=== PATIENT | male | born 2000 | race Asian ===

== ENCOUNTER 2023-07-06 18:43 | Emergency (ER) | payer OTHER, SELFPAY ==
[2023-07-06 18:46] VITALS: BP 177/105; BMI 45.2
--- NOTE | 2023-07-06 21:05 | ED.GENMED ---
History of Present Illness
General
Chief Complaint: Skin Surface Trauma
Source: patient
Exam Limitations: none
Time Seen by Provider: 07/06/23 20:48
Travel History
Have you had any contact with someone who has COVID-19?: No
Do you have any symptoms of coronavirus? Fever > 100 degrees, chills, cough, shortness of breath, sore throat, loss of taste or smell, muscle aches, or headache?: No
History of Present Illness
History of Present Illness:
This is a 23 year old male that comes in with c/o left foot swelling and pain. States that he was getting ready to cook in his kitchen and he dropped the Kitchen aid on his left foot. states that he scrapped his leg on the left and then on the top
of the foot. States that he elevated his foot and applied ice but it kept getting more swollen. Unknown when last Tetanus. Denies any fever, chills, nausea, vomiting, diarrhea, headache, dizziness.
Past History
Past History
ED Past Medical History: None; Negative Asthma, HTN, Hypercholesterolemia or NIDDM
ED Past Surgical History: Orthopedic (ankle right)
Social History
Tobacco: Smoker (occasional)
Alcohol: Occasional
Drug: None
Personal: Single
Living: with family
Review of Systems
Review of Systems
All Other Systems: ROS reviewed and negative except as documented in HPI and ROS
Constitutional: Reports no symptoms; Denies fever or chills
EENT: Reports no symptoms
Respiratory: Reports no symptoms
Cardiac: Reports no symptoms
ABD/GI: Reports no symptoms
: Reports no symptoms
Musculoskeletal: Reports no symptoms
Skin: Reports other (abrasion on the left lateral calf. and skin tear on the left dorsal aspect of the left foot)
Neurological: Reports no symptoms
Psychiatric: Reports no symptoms
Phy Exam
General Physical Exam
General Presentation: well appearing and no apparent distress
General age: appears stated age
General Skin: warm and dry
General Habitus: obese
General Mental: alert
General Hydration: appears well hydrated
Eye Exam
Eye Exam: EOMI
Musculoskeletal Exam
Musculoskeletal Exam: full ROM and no edema
Skin Exam
Skin Exam: normal color, warm/dry, no petechia and other (Contusion left foot with swelling noted. Small abrasion on the left lateral aspect of the calf and small superficial skin tear on the dorsal aspect of the left foot. )
Psychiatric Exam
Psychiatric Exam: normal mood/affect
Course
Orders/Labs/Results
Orders:
Orders
07/06/23 18:45
Foot, Left 3 View [CR Foot - Left Min 3 Views] Urgent
Comment:
Reason For Exam: crush
07/06/23 21:05
Cast Shoe Left-Treatment ONCE
Acetaminophen [Tylenol] 1,000 mg PO NOW STA
Tetanus/Diphth/Acelpertussis [Adacel] 0.5 ml IM .ONCE ONE
Vital Signs
Initial and Last Documented VS:
Initial Vital Signs
Temp Pulse Resp BP Pulse Ox
98 F 71 16 177/105 97
07/06/23 18:46 07/06/23 18:46 07/06/23 18:46 07/06/23 18:46 07/06/23 18:46
Last Documented Vital Signs
Temp Pulse Resp BP Pulse Ox
98 F 71 16 177/105 97
07/06/23 18:46 07/06/23 18:46 07/06/23 18:46 07/06/23 18:46 07/06/23 18:46
MDM/Problems Addressed
Differential Diagnosis Includes:
Contusion, Abrasion, Foot fracture.
MDM/Problems Addressed:
This is a 23 year old male that comes in with c/o injury to the left foot after dropping his Kitchen aid on the foot.
Explained to patient that his x-ray is negative for any fractures. After cleaning his foot there is a superficial abrasion/skin tear. Will apply Triple antibiotic ointment and a bandage. Will give patient a Cast shoe to give support and help him
walk due to the swelling. Patient to rest, elevated and ice. Return with any concerns.
Chronic conditions affecting care:
NA
Acute Exacerbation and/or Progression of Chronic Illness:
NA
*Radiology
Radiology exam reviewed: radiology read reviewed (Foot = There is a significant soft tissue swelling along the dorsum of the foot, however no fracture or dislocation. )
*Pulse Oximetry
Patient hypoxic: no
*EKG
Interpreted by ED Provider?: NA
Rate: EKG- N/A
*Ice Guard Tester Interpretation
Rate: Ice Guard Tester- N/A
*Critical Care Note
Total Time (30-74mins, 75-104mins- exclusive of procedures): Not Applicable
ED Attending Note
-
Portions of this chart may have been created with voice recognition software.� Occasional wrong word or��sound alike� substitutions may have occurred due to the inherent limitations of voice recognition software.
Discharge Plan
Departure
Patient Disposition: Home (Routine Discharge)
Date of Disposition: 07/06/23
Time of Disposition: 21:12
Patient with high blood pressure during this ER visit?: Yes
Condition: Good
Covid-19: Not Applicable
Discharge Problem:
Abrasion of foot, left, Soft tissue swelling
Instructions: Wound Care (DC), Skin Abrasions (DC), BLOOD PRESSURE
Referrals:
Helen Carvalho MD [Family Provider] - As needed
Activity Restrictions/Additional Instructions:
As discussed, your X-ray is negative for any fractures or dislocation. You have an abrasion on the left leg and on the left foot. Please keep both clean with warm soapy water. Apply the Triple antibiotic ointment and a bandage to help keep clean.
Use the cast shoe until you feel you can walk without any discomfort or get into your shoes. Rest, ice and elevated. You may use Tylenol 1000mg every 6 hours for pain. IF YOU HAVE ANY OTHER CONCERNS PLEASE RETURN TO THE EMERGENCY ROOM.
Interventions
Interventions:
*Risk Screen - Suicide Last Done: 07/06/23 18:46
*General Assessment Last Done: 07/06/23 20:21
*Neglect/Abuse Screening Last Done: 07/06/23 18:46
ED- Fall Risk Assessment Last Done: 07/06/23 20:21
*ED COVID-19 Vaccine History Last Done: 07/06/23 18:46
ED-Skin Assessment Last Done: 07/06/23 20:21
[2023-07-06] MEDS: TYLENOL 1000 MG PO (21:17)
[2023-07-06] MEDS: ADACEL 0.5 ML IM (21:19)
[2023-07-06 21:31] VITALS: BP 184/121
== END 2023-07-06 21:34 | disposition home or self-care (01) ==
LOC: EMR 18:43
PROVIDERS: EMERGENCY PHYSICIAN Emergency Medicine; FAMILY PHYSICIAN Family Medicine
DX: R22.42 Localized swelling, mass and lump, left lower limb (principal); S90.812A Abrasion, left foot, initial encounter; W20.8XXA Other cause of strike by thrown, projected or falling object, initial encounter; F17.200 Nicotine dependence, unspecified, uncomplicated; R03.0 Elevated blood-pressure reading, without diagnosis of hypertension; Z23 Encounter for immunization
CPT/HCPCS: 99283; 90471; 73630; 90715